=== PATIENT | female | born 2000 | race Caucasian/White ===

== ENCOUNTER 2023-03-28 21:16 | Emergency (ER) | payer OTHER, SELFPAY ==
[2023-03-28] MEDS ORDERED: Acetaminophen 500 MG TAB ONE (22:32)
[2023-03-28] MEDS ORDERED: Ondansetron ODT 4 MG TAB ONE (22:47)
== END 2023-03-28 23:50 | disposition home or self-care (01) ==
LOC: CSHERS 21:16
DX: S02.2XXA Fracture of nasal bones, initial encounter for closed fracture (principal); W54.1XXA Struck by dog, initial encounter; Y93.89 Activity, other specified
CPT/HCPCS: 70160; Q0162